=== PATIENT | male | born 1955 | race Caucasian/White ===

== ENCOUNTER 2021-01-23 16:53 | Emergency (ER) | payer MEDICARE ==
[~2021-01-23 16:53] MED LIST: HCTZ12.5 MG PO; KEFLEX250 MG PO; LEVAQUIN500 MG PO; LIPITOR20 MG PO; LOPRESSOR25 MG PO; NORCO 5-325 TA1 EACH PO; PREDNISONE 20MG20 MG PO; PREDNISONE20 MG PO; PRINIVIL10 MG PO; TOPROL XL 25MG25 MG PO; VOLTAREN **OUT50 MG PO; WELLBUTRIN SR150 MG PO; ZYVOX600 MG PO
[2021-01-23 18:48] LABS: BASOPHIL 0.5 % (0-2); EOSINOPHIL 2.4 % (0-7); HCT 42.8 % (42.0-52.0); HGB 14.3 g/dl (13.2-18.0); LYMPHOCYTE 25.7 % (15-48); MCHC 33.4 g/dL (32.0-36.0); MCV 86.8 fL (78.0-100.0); MONOCYTE 9.9 % (0-12); MPV 8.5 fL (6.0-9.5); NEUTROPHIL 61.1 % (41-80); NRBC 0; PLT 234 K/uL (150-400); RBC 4.93 M/uL (4.70-6.00); RDW 13.9 % (11.5-14.0); WBC 9.9 K/uL (4.0-10.5)
[2021-01-23 19:02] LABS: BUN/CREAT RATIO (CALC) 16.7 RATIO; CREATININE 0.84 mg/dL (0.67-1.17); POTASSIUM 4.1 mmol/L (3.5-5.1)
[2021-01-23] MEDS ORDERED: BACLOFEN 10MG T10 MG PO (21:04)
[2021-01-23] MEDS ORDERED: VIBRAMYCIN100 MG PO (21:04)
== END 2021-01-23 21:32 | disposition home or self-care (01) ==
LOC: FER 16:53
PROVIDERS: Nurse Practitioner Family
DX: R51.9 Headache, unspecified (principal); M54.2 Cervicalgia; J32.9 Chronic sinusitis, unspecified; I10 Essential (primary) hypertension; I48.91 Unspecified atrial fibrillation; F17.210 Nicotine dependence, cigarettes, uncomplicated; G47.33 Obstructive sleep apnea (adult) (pediatric)
CPT/HCPCS: 36415; 70450; 80048; 85025; 93005; J1100; J1885; J2405; J7030

== ENCOUNTER 2021-01-25 20:08 | Emergency (ER) | payer MEDICARE ==
[~2021-01-25 20:08] MED LIST changes: +BACLOFEN 10MG T10 MG PO; +VIBRAMYCIN100 MG PO
[2021-01-25 20:47] LABS: BASOPHIL 0.6 % (0-2); EOSINOPHIL 1.6 % (0-7); HGB 15.6 g/dl (13.2-18.0); LYMPHOCYTE 25.9 % (15-48); MCH 29.2 pg (25.0-31.0); MCHC 33.9 g/dL (32.0-36.0); MONOCYTE 7.5 % (0-12); MPV 8.6 fL (6.0-9.5); NEUTROPHIL 63.7 % (41-80); NRBC 0; PLT 279 K/uL (150-400); RBC 5.35 M/uL (4.70-6.00)
[2021-01-25 20:57] LABS: INR 0.99 (0.9-1.2); PROTHROMBIN TIME 12.4 SECONDS (11.4-13.6); PTT 28.6 SECONDS (22.2-34.7)
[2021-01-25 21:02] LABS: BUN/CREAT RATIO (CALC) 18.4 RATIO; C-REACTIVE PROTEIN 0.8 mg/dL (<=0.90); CREATININE 1.03 mg/dL (0.67-1.17); POTASSIUM 3.7 mmol/L (3.5-5.1)
[2021-01-26 00:14] LABS: CORONAVIRUS 2019 SARS-COV-2 NEGATIVE (NEGATIVE); INFLUENZA A NAA NEGATIVE (NEGATIVE)
[2021-01-26] MEDS ORDERED: VOLTAREN **OUT50 MG PO (01:19)
[2021-01-26] MEDS ORDERED: ROBAXIN500 MG PO (01:19)
[2021-01-26] MEDS ORDERED: ONDANSETRON ODT4 MG SL (01:19)
[2021-01-26] MEDS ORDERED: FIORICET1 EACH PO (01:19)
== END 2021-01-26 01:30 | disposition home or self-care (01) ==
LOC: FER 20:08
PROVIDERS: Emergency Medicine Emergency Medical Services
DX: I10 Essential (primary) hypertension (principal); R51.9 Headache, unspecified; I48.91 Unspecified atrial fibrillation; F17.210 Nicotine dependence, cigarettes, uncomplicated; Z20.822 Contact with and (suspected) exposure to COVID-19
CPT/HCPCS: 36415; 80048; 85025; 85610; 85730; 86140; 96372; J1100; J1200; J1885; J2765; J2800; J3030; J7030; J7050; Q9967; U0002